=== PATIENT | female | born 1970 | race Caucasian/White ===

== ENCOUNTER 2018-08-18 08:14 | Day surgery (SDC) | payer OTHER ==
[2018-08-18] MEDS ORDERED: LIDOCAINE 4% SOLUTION 50 ML BTL (09:56)
[2018-08-18] MEDS ORDERED: FENTAnyl 50 MCG/ML VIAL (10:32)
[2018-08-18] MEDS ORDERED: MIDAZOLAM 1 MG/ML 2 ML INJ ×2 (10:32)
== END 2018-08-18 10:57 | disposition home or self-care (01) ==
LOC: GIL 08:14
DX: R19.4 Change in bowel habit (principal); K29.50 Unspecified chronic gastritis without bleeding; I10 Essential (primary) hypertension
CPT/HCPCS: 43239; 88305; 88312